=== PATIENT | female | born 1955 | race African-American/Black ===

== ENCOUNTER 2016-07-03 18:22 | Emergency (ER) | payer OTHER ==
[2016-07-03 18:46] VITALS: BP 140/79; PULSE 80; TEMP 98.4; BMI 29.5
--- NOTE | 2016-07-03 20:14 | PDOC ---
History of Present Illness - General Chief Complaint: Laceration Stated Complaint: LACERATION Time Seen by Provider: 07/03/16 19:57 History Source: Patient Exam Limitations: No Limitations - History of Present Illness Initial Comments: 07/03/16 20:10 Patient states tripped and fell striking left side of her head on the pavement striking his glasses causing a small laceration to the lateral aspect of her left brow. Past History - Travel Traveled outside of the country in the last 30 days: No Close contact w/someone who was outside of country & ill: No - Past Medical History Allergies/Adverse Reactions: Allergies Allergy/AdvReac Type Severity Reaction Status Date / Time No Known Allergies Allergy Verified 07/03/16 18:41 HTN: Yes - Immunization History Tetanus Status: Less than 5 years - Psycho/Social/Smoking Cessation Hx Suicidal Ideation: No Smoking History: Never smoked Trauma Specific PMHX - Complaint Specific PMHX Arthritis: No Back Injury: No Review of Systems - Review of Systems Able to Perform ROS?: Yes Is the patient limited Khmer proficient: Yes Constitutional: Yes: See HPI. No: Symptoms Reported, Chills, Fever HEENTM: Yes: Symptoms Reported, See HPI, Other (small contusion to left lateral brow). No: Eye Pain, Nose Pain, Mouth Pain Integumentary: Yes: Symptoms Reported All Other Systems: Reviewed and Negative *Physical Exam - Vital Signs Last Vital Signs Temp Pulse Resp BP Pulse Ox 98.4 F 80 18 140/79 96 07/03/16 18:41 07/03/16 18:41 07/03/16 18:41 07/03/16 18:41 07/03/16 18:41 - Physical Exam General Appearance: Yes: Nourished, Appropriately Dressed, Apparent Distress, Mild Distress HEENT: positive: OTONIEL, Normal ENT Inspection, TMs Normal (no hemotympanum), Pharynx Normal, Other (1 cm laceration to left lateral brow. No crepitus or step -offs, no orbital pain, no bruising no evidence of fracture). negative: Nasal Congestion, Rhinorrhea Neck: positive: Tender, Supple (no cspine tenderness ), Other Respiratory/Chest: positive: Lungs Clear, Normal Breath Sounds Extremity: positive: Normal Capillary Refill, Normal Inspection, Normal Range of Motion Integumentary: positive: Normal Color, Dry Neurologic: positive: supervisor phosphorus processing II-XII NML intact, Fully Oriented, Alert, Normal Mood/ Affect, Normal Response, Motor Strength 5/5 Procedures - Laceration/Wound Repair Left Face Wound Length: to 2.5 cm Wound Explored: clean Wound's Depth, Shape: superficial, linear Irrigated w/ Saline: Yes Wound Repaired With: Dermabond Progress Note - Progress Note Progress Note: Superficial laceration to left brow, no evidence of significant head injury. Repaired with Dermabond and tolerated well *DC/Admit/Observation/Transfer Diagnosis at time of Disposition: Facial laceration Qualifiers: Encounter type: initial encounter Qualified Code(s): S01.81XA - Laceration without foreign body of other part of head, initial encounter - Discharge Dispostion Disposition: HOME Condition at time of disposition: Stable Admit: No - Referrals Referrals: Ganesh Gomez [Primary Care Provider] - - Patient Instructions Printed Discharge Instructions: DI for Laceration Repair With Dermabond Additional Instructions: Rest, no strenuous activity or exercise until glue is dissolved or lifted Wash from the neck down only and avoid hot steamy environment until Dermabond is gone No bathing or swimming until Dermabond is dissolved Avoid peeling away as wound will open Dermabond should be resolved within 3-7 days May use Tylenol or Motrin for pain relief Followup with route specialist as needed Return to emergency department for worsening swelling, pain, redness or signs of cellulitis If the wound reopens, may not be reclosed as will be a dirty wound and will need to heal by secondary intention - Post Discharge Activity Work/School Note: Back to Work
== END 2016-07-03 20:31 | disposition home or self-care (01) ==
LOC: JERFT 18:22
PROC: 0HQ1XZZ Repair Face Skin, External Approach (ICD-10-PCS; principal; 2016-07-03)
DX: S01.112A Laceration without foreign body of left eyelid and periocular area, initial encounter (principal); S00.12XA Contusion of left eyelid and periocular area, initial encounter; W01.0XXA Fall on same level from slipping, tripping and stumbling without subsequent striking against object, initial encounter; Y93.31 Activity, mountain climbing, rock climbing and wall climbing; Y92.480 Sidewalk as the place of occurrence of the external cause; Y99.8 Other external cause status; I10 Essential (primary) hypertension
CPT/HCPCS: 99281-25